=== PATIENT | female | born 1940 | race Caucasian/White ===

== ENCOUNTER 2018-02-12 19:28 | Emergency (ER) | payer OTHER ==
[~2018-02-12] VITALS: Ht 167.6 cm; Wt 77.1 kg
[2018-02-12] MEDS ORDERED: ACETAMINOPHEN 325 MG TAB PO ONE (20:00)
[2018-02-12] MEDS ORDERED: ASPIR 8181 MG PO (20:08)
[2018-02-12] MEDS ORDERED: PULMICORT1 MG/2 ML (20:08)
[2018-02-12] MEDS ORDERED: CITALOPRAM HBR20 MG PO (20:08)
[2018-02-12] MEDS ORDERED: PLAVIX75 MG PO (20:08)
[2018-02-12] MEDS ORDERED: ISOSORBIDE MONO20 MG PO (20:08)
[2018-02-12] MEDS ORDERED: ZYRTEC10 M3 (20:08)
[2018-02-12] MEDS ORDERED: ALENDRONATE SODI5 MG (20:08)
[2018-02-12] MEDS ORDERED: SYMBICORT 16010.2 GM (20:08)
[2018-02-12] MEDS ORDERED: PANTOPRAZOLE SO40 MG PO (20:08)
[2018-02-12] MEDS ORDERED: CRESTOR10 MG PEG (20:08)
[2018-02-12] MEDS ORDERED: CLARITIN PO (20:08)
[2018-02-12] MEDS ORDERED: METOPROLOL SUCC50 MG PO (20:08)
[2018-02-12] MEDS ORDERED: ADVAIR 100-501 EACH (20:08)
[2018-02-12] MEDS ORDERED: DIOVAN80 MG PO (20:08)
[2018-02-12] MEDS ORDERED: NITROGLYCERIN0.4 MG SL (20:08)
[2018-02-12] MEDS ORDERED: ULTRAM50 MG PO (21:17)
== END 2018-02-12 21:30 | disposition home or self-care (01) ==
LOC: ER 19:28 → FSED 21:30
DX: S52.034A Nondisplaced fracture of olecranon process with intraarticular extension of right ulna, initial encounter for closed fracture (principal); S50.01XA Contusion of right elbow, initial encounter; S50.11XA Contusion of right forearm, initial encounter; W10.8XXA Fall (on) (from) other stairs and steps, initial encounter; Y92.008 Other place in unspecified non-institutional (private) residence as the place of occurrence of the external cause; Z95.5 Presence of coronary angioplasty implant and graft
CPT/HCPCS: 99284

== ENCOUNTER 2018-10-10 08:58 | Emergency (ER) | payer MEDICARE, OTHER ==
[~2018-10-10] VITALS: Ht 167.6 cm; Wt 79.1 kg
[~2018-10-10 08:58] MED LIST: ADVAIR 100-501 EACH; ALENDRONATE SODI5 MG; ASPIR 8181 MG PO; CITALOPRAM HBR20 MG PO; CLARITIN PO; CRESTOR10 MG PEG; DIOVAN80 MG PO; ISOSORBIDE MONO20 MG PO; METOPROLOL SUCC50 MG PO; NITROGLYCERIN0.4 MG SL; PANTOPRAZOLE SO40 MG PO; PLAVIX75 MG PO; PULMICORT1 MG/2 ML; SYMBICORT 16010.2 GM; ULTRAM50 MG PO; ZYRTEC10 M3
--- OUTSIDE RECORDS SUMMARY | 2018-10-10 09:01 | XMS REPORT | Clinical Summary ---
Author Author ELIF ngmoco Organization [facility] Address Unknown Phone Unavailable Care Team Providers Care Group Director Name Role Phone Charisma Espinal MD PCP Allergies Comments Active Allergy Reactions Severity Noted Date Kaleb Inhibitors 11/07/2013 Codeine 11/07/2013 Penicillins 11/07/2013 Medications End Date Status Medication Sig Dispensed Refills Start Date Active fluticasone (FLOVENT HFA) Inhale 1 puff 0 110 mcg/actuation inhaler by mouth via inhaler 2 (two) times daily. Active loratadine (CLARITIN) 10 Take 10 mg by 0 mg tablet mouth daily. Active aspirin 81 MG chewable Take 81 mg by 0 tablet mouth daily. Active metoprolol (TOPROL-XL) 25 Take 50 mg by 0 MG 24 hr tablet mouth daily . Active rosuvastatin (CRESTOR) 40 Take 40 mg by 0 MG tablet mouth daily. Active clopidogrel (PLAVIX) 75 Take 75 mg by 0 mg tablet mouth daily. Active citalopram (CELEXA) 20 MG Take 20 mg by 0 tablet mouth daily. Active budesonide (PULMICORT) Take 0.25 mg 0 0.25 mg/2 mL nebulizer by solution nebulization 2 (two) times daily. Active alendronate (FOSAMAX) 70 Take 70 mg by 0 MG tablet mouth every 7 days Take in the morning with a full glass of water, on an empty stomach, and do not take anything else by mouth or lie down for the next 30 min. . Active pantoprazole (PROTONIX) Take 40 mg by 0 40 MG tablet mouth daily. Active isosorbide mononitrate Take 30 mg by 0 (IMDUR) 30 MG 24 hr mouth daily. tablet Active calcium carbonate-vitamin Take 1 tablet 0 D3 (OSCAL-D) 500 by mouth 2 mg(1,250mg) -200 unit per (two) times tablet daily with breakfast and dinner. Active amLODIPine (NORVASC) 10 Take 10 mg by 0 MG tablet mouth daily. Active levothyroxine (SYNTHROID, Take 50 mcg 0 LEVOTHROID) 50 MCG tablet by mouth Every morning on an empty stomach. 09/28/2018 Discontinued valsartan (DIOVAN) 40 MG Take 40 mg by 0 tablet mouth daily. Active Problems Problem Noted Date Chest pain 05/05/2017 Angina pectoris 11/08/2013 Overview: ICD9 DX Sqe Encounters Care Team Description Date Type Specialty Denilson Foy MD 09/29/2018 Hospital Gastroenterology Encounter Denilson Foy MD REMOVAL,24HR PH PROBE 09/29/2018 Surgery Gastroenterology Lyudmila Cuevas MD TEST,MONITORING 24 HR PH 09/28/2018 Surgery Gastroenterology Denilson Foy MD 09/28/2018 Hospital Gastroenterology Encounter after 10/09/2017 Social History Date Tobacco Use Types Packs/Day Years Used Former Smoker Smokeless Tobacco: Never Used Alcohol Use Drinks/Week oz/Week Comments Yes socially Sex Assigned at Date Recorded Not on file Industry Job Start Date Occupation Not on file Not on file Not on file Travel End Travel History Travel Start No recent travel history available. Last Filed Vital Signs Time Taken Vital Sign Reading 09/28/2018 3:36 PM [facility] Blood Pressure 144/80 09/28/2018 3:36 PM [facility] Pulse 68 09/28/2018 3:36 PM [facility] Temperature 36.6 C (97.9 F) 09/28/2018 3:36 PM [facility] Respiratory Rate 18 09/28/2018 3:36 PM [facility] Oxygen Saturation 98% - Inhaled Oxygen - Concentration 09/28/2018 3:36 PM [facility] Weight 79.4 kg (175 lb) 09/28/2018 3:36 PM [facility] Height 170.2 cm (5' 7") 09/28/2018 3:36 PM [facility] Body Mass Index 27.41 Plan of Treatment Not on file Implants Device Identifier Shelf Expiration Date Model / Serial / Lot Implanted Type Area Manufactur er [id number] 06/20/2018 [id number] / / [id number] Promu Premier Stents-Cor N/A: Coronary [place] Implanted: Qty: 1 on 05/05/2017 onary [employer] Procedures Comments Procedure Name Priority Date/Time Associated Diagnosis MOTILITY 09/28/2018 Chronic cough 2:30 PM [facility] Special Needs (READ BY DR CUEVAS) TEST,MONITORING 24 HR PH 09/28/2018 Chronic cough 2:30 PM [facility] Special Needs (READ BY DR CUEVAS) after 10/09/2017 Results Not on fileafter 10/09/2017 Insurance Payer Benefit Subscriber ID Type Phone Address Plan / Group [employer] xxxxxxxxx Maps HMO ALL Contracted Advance Directives Patient has advance care planning documents, and code status on file. For more i nformation, please contact: [phone] [place] [address] Date Inactivated Comments Code Status Date Activated 05/06/2017 12:13 PM Full Code 05/05/2017 7:12 AM This code status was determined by: Patient 11/09/2013 2:55 PM All possible means of support including;cardiac massage, mechanical ventilation, and defibrillation will be used to support life. Code ONE 11/08/2013 7:23 AM
--- NOTE | 2018-10-10 10:12 | Diagnostic Imaging Report ---
EXAM: CXR 2 VIEW - HOPD, PA and lateral DATE: 10/10/2018 Time stamp on exam: 9:27 AM INDICATION: Cough COMPARISON: None FINDINGS: LINES/TUBES: None LUNGS: Linear scarring/atelectasis in the left lung base. Nodular opacity in the left lower lung. CT scan of the chest recommended for further evaluation. PLEURA: Minimal amount of fluid within the fissures. HEART AND MEDIASTINUM: Normal size and contour. There is calcification within the aorta and tortuosity. BONES AND SOFT TISSUES: No acute findings. IMPRESSION: 1. Linear scarring/atelectasis in the left base. 2. Left lower lobe pulmonary nodule. 3. CT scan of the chest recommended for further evaluation. Signed by: Dr. Suleiman Vanegas DO on 10/10/2018 10:08 AM
[2018-10-10 10:46] VITALS: BP 148/88
== END 2018-10-10 10:45 | disposition home or self-care (01) ==
LOC: FSED 08:58
DX: R05 Cough (principal); J20.9 Acute bronchitis, unspecified; B30.9 Viral conjunctivitis, unspecified
CPT/HCPCS: 71046; 83518; 87400; 99283

== ENCOUNTER 2021-04-22 18:48 | Emergency (ER) | payer MEDICARE, OTHER ==
[~2021-04-22] VITALS: Ht 167.6 cm; Wt 78.9 kg
== END 2021-04-22 20:35 | disposition home or self-care (01) ==
LOC: FSED 19:05
DX: S00.83XA Contusion of other part of head, initial encounter (principal); W01.0XXA Fall on same level from slipping, tripping and stumbling without subsequent striking against object, initial encounter; Y93.01 Activity, walking, marching and hiking; Y92.008 Other place in unspecified non-institutional (private) residence as the place of occurrence of the external cause; I10 Essential (primary) hypertension; E78.5 Hyperlipidemia, unspecified; K21.9 Gastro-esophageal reflux disease without esophagitis; I25.10 Atherosclerotic heart disease of native coronary artery without angina pectoris; I25.2 Old myocardial infarction
CPT/HCPCS: 70450; 70486; 99283